=== PATIENT | female | born 1955 | race Caucasian/White ===

== ENCOUNTER 2023-06-21 14:08 | Outpatient (RCR) | payer OTHER, SELFPAY | END 2023-06-21 23:59 | disposition home or self-care (01) | LOC: RPT 14:08 | PROVIDERS: ATTENDING PHYSICIAN Urology; FAMILY PHYSICIAN Family Medicine | DX: M62.89 Other specified disorders of muscle (principal); N39.0 Urinary tract infection, site not specified; N95.2 Postmenopausal atrophic vaginitis; Z73.6 Limitation of activities due to disability | CPT/HCPCS: 97110; 97162; 97535 ==

== ENCOUNTER 2023-07-19 09:09 | Outpatient (RCR) | payer OTHER, SELFPAY | END 2023-07-19 23:59 | disposition home or self-care (01) | LOC: RPT 09:09 | PROVIDERS: ATTENDING PHYSICIAN Urology; FAMILY PHYSICIAN Family Medicine | DX: M62.89 Other specified disorders of muscle (principal); N39.0 Urinary tract infection, site not specified; N95.2 Postmenopausal atrophic vaginitis; Z73.6 Limitation of activities due to disability | CPT/HCPCS: 97110; 97112; 97530 ==

== ENCOUNTER 2023-08-16 09:53 | Outpatient (RCR) | payer OTHER, SELFPAY | END 2023-08-16 23:59 | disposition home or self-care (01) | LOC: RPT 09:53 | PROVIDERS: ATTENDING PHYSICIAN Urology; FAMILY PHYSICIAN Family Medicine | DX: M62.89 Other specified disorders of muscle (principal); N39.0 Urinary tract infection, site not specified; N95.2 Postmenopausal atrophic vaginitis; Z73.6 Limitation of activities due to disability | CPT/HCPCS: 97110; 97112 ==

== ENCOUNTER → 2023-08-20 08:16 | Outpatient (REF) | payer OTHER, SELFPAY | LOC: HWRAD 08:16 | PROVIDERS: ATTENDING PHYSICIAN Family Medicine | DX: R05.2 Subacute cough (principal) | CPT/HCPCS: 71046 ==

== ENCOUNTER 2023-08-23 10:15 | Outpatient (RCR) | payer OTHER, SELFPAY | END 2023-08-23 23:59 | disposition home or self-care (01) | LOC: RPT 10:15 | PROVIDERS: ATTENDING PHYSICIAN Urology; FAMILY PHYSICIAN Family Medicine | DX: M62.89 Other specified disorders of muscle (principal); N39.0 Urinary tract infection, site not specified; N95.2 Postmenopausal atrophic vaginitis; Z73.6 Limitation of activities due to disability | CPT/HCPCS: 97110; 97112 ==

== ENCOUNTER 2023-10-19 12:03 | Outpatient (RCR) | payer OTHER, SELFPAY | END 2023-10-19 23:59 | disposition home or self-care (01) | LOC: RPT 12:03 | PROVIDERS: ATTENDING PHYSICIAN Urology; FAMILY PHYSICIAN Family Medicine | DX: M62.89 Other specified disorders of muscle (principal); N39.0 Urinary tract infection, site not specified; N95.2 Postmenopausal atrophic vaginitis; Z73.6 Limitation of activities due to disability | CPT/HCPCS: 97110; 97112 ==

== ENCOUNTER → 2023-11-15 18:13 | Outpatient (REF) | payer OTHER, SELFPAY | LOC: RAD 18:13 | PROVIDERS: ATTENDING PHYSICIAN Family Medicine; FAMILY PHYSICIAN Internal Medicine Rheumatology | DX: M25.561 Pain in right knee (principal); G89.29 Other chronic pain; M25.562 Pain in left knee | CPT/HCPCS: 73560; 73565 ==

== ENCOUNTER 2023-11-18 14:09 | Outpatient (RCR) | payer OTHER, SELFPAY | END 2023-11-18 23:59 | disposition home or self-care (01) | LOC: RPT 14:09 | PROVIDERS: ATTENDING PHYSICIAN Urology; FAMILY PHYSICIAN Family Medicine | DX: M62.89 Other specified disorders of muscle (principal); N39.0 Urinary tract infection, site not specified; N95.2 Postmenopausal atrophic vaginitis; Z73.6 Limitation of activities due to disability | CPT/HCPCS: 97110; 97112 ==

== ENCOUNTER → 2023-11-23 07:22 | Outpatient (REF) | payer OTHER, SELFPAY | LOC: DHCBC/DCA 07:22 | PROVIDERS: ATTENDING PHYSICIAN Internal Medicine Cardiovascular Disease; FAMILY PHYSICIAN Family Medicine | DX: R06.09 Other forms of dyspnea (principal); R07.89 Other chest pain | CPT/HCPCS: 78452; 93017; A9500 ==

== ENCOUNTER 2023-12-21 11:57 | Outpatient (RCR) | payer OTHER, SELFPAY | END 2023-12-21 23:59 | disposition home or self-care (01) | LOC: RPT 11:57 | PROVIDERS: ATTENDING PHYSICIAN Urology; FAMILY PHYSICIAN Family Medicine | DX: M62.89 Other specified disorders of muscle (principal); N39.0 Urinary tract infection, site not specified; N95.2 Postmenopausal atrophic vaginitis; Z73.6 Limitation of activities due to disability | CPT/HCPCS: 97110; 97112; 97530 ==

== ENCOUNTER → 2023-12-21 15:09 | Outpatient (REF) | payer OTHER, SELFPAY | LOC: HWRCS 15:09 | PROVIDERS: ATTENDING PHYSICIAN Internal Medicine Cardiovascular Disease; FAMILY PHYSICIAN Family Medicine | DX: R06.09 Other forms of dyspnea (principal); R07.89 Other chest pain; I10 Essential (primary) hypertension | CPT/HCPCS: 93306 ==

== ENCOUNTER 2024-01-18 12:04 | Outpatient (RCR) | payer OTHER, SELFPAY | END 2024-01-18 23:59 | disposition home or self-care (01) | LOC: RPT 12:04 | PROVIDERS: ATTENDING PHYSICIAN Urology; FAMILY PHYSICIAN Family Medicine | DX: M62.89 Other specified disorders of muscle (principal); N39.0 Urinary tract infection, site not specified; N95.2 Postmenopausal atrophic vaginitis; Z73.6 Limitation of activities due to disability | CPT/HCPCS: 97110; 97112 ==

== ENCOUNTER 2024-03-21 11:57 | Outpatient (RCR) | payer OTHER, SELFPAY | END 2024-03-21 23:59 | disposition home or self-care (01) | LOC: RPT 11:57 | PROVIDERS: ATTENDING PHYSICIAN Urology; FAMILY PHYSICIAN Family Medicine | DX: M62.89 Other specified disorders of muscle (principal); N39.0 Urinary tract infection, site not specified; N95.2 Postmenopausal atrophic vaginitis; Z73.6 Limitation of activities due to disability | CPT/HCPCS: 97110; 97112; 97530 ==

== ENCOUNTER → 2024-04-25 06:18 | Day surgery (SDC) | payer OTHER, SELFPAY | LOC: GI 06:18 | PROVIDERS: ATTENDING PHYSICIAN Specialist | DX: Z12.11 Encounter for screening for malignant neoplasm of colon (principal); Z86.0101 Personal history of adenomatous and serrated colon polyps; K57.30 Diverticulosis of large intestine without perforation or abscess without bleeding; D12.3 Benign neoplasm of transverse colon; K62.1 Rectal polyp; K51.40 Inflammatory polyps of colon without complications | CPT/HCPCS: 45385; 45380; 88305 ==

== ENCOUNTER 2025-03-03 00:35 | Emergency (ER) | payer OTHER, SELFPAY ==
[2025-03-03 00:38] VITALS: BP 117/82
--- NOTE | 2025-03-03 01:36 | ED.GENMED ---
ED Provider Triage
<Eric Hodge MD, Resident - Last Filed: 03/03/25 04:08>
-
Patient seen by provider in Triage?: Seen in Triage
History of Present Illness
<Eric Hodge MD, Resident - Last Filed: 03/03/25 04:08>
General
Chief Complaint: Abdominal Symptoms
Source: patient
Exam Limitations: none
Time Seen by Provider: 03/03/25 01:29
History of Present Illness
History of Present Illness:
69-year-old female who presents today with upper respiratory tract infection symptoms (rhinorrhea, nasal congestion, mild sore throat) for the past 5 days (Wednesday night) which have been progressively improving, however today she had 5 episodes of
nausea associated with watery diarrhea, and new onset of GERD like sensation in her chest. No vomiting, abdominal pain, abdominal distention, cough, fever, chills, ear pain/fullness, dysuria, urinary frequency. No previous history of GERD.
Past History
<Eric Hodge MD, Resident - Last Filed: 03/03/25 04:08>
Past History
ED Past Medical History: Asthma, HTN, Hypercholesterolemia, Psychiatric (Depression, Anxiety) and Other (Meningioma, Diverticulitis, UTI, Sleep apnea uses CPAP)
ED Past Surgical History: Gynecological (D & C), Orthopedic (Ethan carpal tunnel) and Tonsilectomy
Social History
Tobacco: Former smoker
Alcohol: Occasional
Drug: None
Personal:
Living: with family
Employment: Employed
Family History
Family History: Other (Noncontributory); Negative Sudden
Review of Systems
<Eric Hodge MD, Resident - Last Filed: 03/03/25 04:08>
Review of Systems
All Other Systems: ROS reviewed and negative except as documented in HPI and ROS
Phy Exam
<Eric Hodge MD, Resident - Last Filed: 03/03/25 04:08>
General Physical Exam
General Presentation: well appearing and no apparent distress
General Habitus: normal
General Mental: alert
ENT Exam
ENT Exam: other (Mild clear nasal discharge seen bilaterally)
Cardiovascular Exam
Cardiovascular Exam: regular rate/rhythm and no edema
Pulmonary Exam
Pulmonary Exam: lungs clear and no respiratory distress
Gastrointestinal Exam
Gastrointestinal Exam: normal bowel sounds, non tender, soft, non distended and other (erythema of injection site on right hypogastric area)
Neurological Exam
Neurological Exam: alert and oriented x3
Skin Exam
Skin Exam: normal color, warm/dry and no rash
Course
<Eric Hodge MD, Resident - Last Filed: 03/03/25 04:08>
Orders/Labs/Results
Orders:
Orders
03/03/25 01:57
EKG [Electrocardiogram (*1)] Urgent
Reason for Study: Chest Pain
EKG- Treatment ONCE
03/03/25 02:13
CBC/With Diff [Complete Blood Count/With Diff] Urgent
CMP [Comprehensive Metabolic Panel] Urgent
Troponin I Urgent
03/03/25 03:34
Hydrocortisone [Hydrocortisone 2.5% Cream] See Dose Instructions TOPICAL NOW STA
Abnormal Lab Results
03/03/25
02:13
Absolute Monos (auto) 0.7 H 10^3/uL
(0.1-0.6)
03/03/25 02:13
03/03/25 02:13
Vital Signs
Initial and Last Documented VS:
Initial Vital Signs
Temp Pulse Resp BP Pulse Ox
98.4 F 78 16 117/82 100
03/03/25 00:38 03/03/25 00:38 03/03/25 00:38 03/03/25 00:38 03/03/25 00:38
Last Documented Vital Signs
Temp Pulse Resp BP Pulse Ox
98.6 F 71 19 149/76 96
03/03/25 02:00 03/03/25 03:00 03/03/25 03:00 03/03/25 03:00 03/03/25 03:00
<Hallie Daly DO - Last Filed: 03/03/25 04:12>
Orders/Labs/Results
Orders:
Orders
03/03/25 01:57
EKG [Electrocardiogram (*1)] Urgent
Reason for Study: Chest Pain
EKG- Treatment ONCE
03/03/25 02:13
CBC/With Diff [Complete Blood Count/With Diff] Urgent
CMP [Comprehensive Metabolic Panel] Urgent
Troponin I Urgent
03/03/25 03:34
Hydrocortisone [Hydrocortisone 2.5% Cream] See Dose Instructions TOPICAL NOW STA
Abnormal Lab Results
03/03/25
02:13
Absolute Monos (auto) 0.7 H 10^3/uL
(0.1-0.6)
03/03/25 02:13
03/03/25 02:13
Vital Signs
Initial and Last Documented VS:
Initial Vital Signs
Temp Pulse Resp BP Pulse Ox
98.4 F 78 16 117/82 100
03/03/25 00:38 03/03/25 00:38 03/03/25 00:38 03/03/25 00:38 03/03/25 00:38
Last Documented Vital Signs
Temp Pulse Resp BP Pulse Ox
98.6 F 71 19 149/76 96
03/03/25 02:00 03/03/25 03:00 03/03/25 03:00 03/03/25 03:00 03/03/25 03:00
<Eric Hodge MD, Resident - Last Filed: 03/03/25 04:08>
MDM/Problems Addressed
Differential Diagnosis Includes:
Viral gastroenteritis, drug induced diarrhea, irritable bowel syndrome, viral upper respiratory infection
MDM/Problems Addressed:
- EKG normal
- CBC unremarkable
- CMP unremarkable
- Troponin normal
- stool studies pending
Will discharge patient home with hydrocortisone cream to apply on injection site allergic reaction. F/u with PCP within 5 days.
<Eric Hodge MD, Resident - Last Filed: 03/03/25 04:08>
*Pulse Oximetry
SaO2: 100
Oxygen Mode of Delivery: Room air
Patient hypoxic: no
*Critical Care Note
Total Time (30-74mins, 75-104mins- exclusive of procedures): Not Applicable
ED Attending Note
<Eric Hodge MD, Resident - Last Filed: 03/03/25 04:08>
-
Portions of this chart may have been created with voice recognition software.� Occasional wrong word or��sound alike� substitutions may have occurred due to the inherent limitations of voice recognition software.
<Hallie Daly DO - Last Filed: 03/03/25 04:12>
ED Attending Note
Patient seen and examined by attending physician: Yes
I performed a history and physical exam of patient and discussed management with resident, I reviewed resident's note and agree with documented findings and plan of care.: Yes
ED Attending Note:
69-year-old woman with history of hypertension, hyperlipidemia, obstructive sleep apnea. History of diverticulitis with last episode 2021, history of irritable bowel disease with diarrhea.
She presents with 5-day history of URI symptoms, nasal congestion, clear rhinorrhea, low-grade fever 1 to 2 days ago which has since resolved. No coughing or shortness of breath. Symptoms have been improving.
Since yesterday however she developed diarrhea passing 5 loose nonbloody stools. Tonight after lying down to bed she developed nausea and heartburn. She has had no vomiting. No fever. She denies abdominal pain.
She is maintained on Zepbound for the past 4 months, dose was increased 2 weeks ago from 10 mg to 12.5 mg weekly. After her second injection 2 to 3 days ago she noticed an itchy red rash at the injection site right mid abdomen. She has never
experienced itchy rash previously.
No recent travel nor recent antibiotic use.
She presents to the ED with concern for heartburn and nausea. Concern for cardiac in nature. She has had no associated shortness of breath, no palpitations, no dizziness or lightheadedness, no neck nor back pain. No history of similar episodes in
the past. She admits that current symptoms are quite different from previous episode of diverticulitis which she presented with left lower quadrant abdominal pain.
Prior records reviewed.
Patient underwent colonoscopy April 2024. 1 polyp removed. Multiple colon biopsies unremarkable.
69-year-old woman appears her stated age, bright and alert, pleasant, appears in no acute distress. Afebrile. Noted to have very mild, nasal, stuffy voice.
HEENT: Mildly boggy turbinates with scant clear rhinorrhea. Posterior pharynx with scant clear postnasal drip, no injection nor exudate. Oral mucosa is moist. TMs are clear bilaterally.
Neck is supple, nontender, no adenopathy, no JVD, no meningismus.
Heart is regular rate and rhythm. No murmur no rub.
Lungs are clear to auscultation. Respirations are easy and nonlabored.
Abdomen is rotund, soft, nontender. No palpable masses. Normoactive bowel sounds.
Skin: There is a well-circumscribed erythematous patch right mid abdomen. No palpable heat nor palpable tenderness.
Extremities without clubbing or cyanosis or edema. Peripheral pulses are full and equal.
Concern for acute viral URI, acute gastroenteritis, ACS, GERD. Concern for adverse reaction to increased dose of Zepbound.
Patient noted to have erythematous itchy patch right mid abdomen. Concern for local contact dermatitis.
She has had no diarrhea since arrival to the ED and abdomen is soft without appreciable tenderness. Nothing to suggest small bowel obstruction nor diverticulitis nor significant colitis.
URI symptoms have been improving over the past day or 2. She is afebrile and reports recent low-grade fever has resolved. She has not had a cough nor shortness of breath and lungs are clear to auscultation.
At this point no indication for imaging.
Will check EKG as well as troponin. Routine labs are also pending.
If diarrhea recurs will check stool cultures.
Will apply hydrocortisone cream to focal abdominal wall itchy rash.
Discharge Plan
Departure
Patient Disposition: Home (Routine Discharge)
Date of Disposition: 03/03/25
Time of Disposition: 03:54
Patient with high blood pressure during this ER visit?: Yes
Condition: Fair
Discharge Problem:
Viral gastroenteritis, Nonspecific chest pain, Contact dermatitis
Instructions: Viral gastroenteritis in adults, BLOOD PRESSURE
Prescriptions:
New
hydrocortisone 2.5 % cream
1 applic topical BID PRN (Reason: allergic reaction) Qty: 20 0RF
No Action
duloxetine 30 MG capsule,delayed release(DR/EC)
60 mg PO HS
albuterol sulfate 1 PUFF HFA aerosol inhaler
2 puff inhalation R Q4HPRN PRN (Reason: sob/wheezing)
valsartan 40 mg Tablet
PO DAILY
Patient Comments:
unknown exact dose
rosuvastatin 5 mg Tablet
PO DAILY
Patient Comments:
unknown exact dose
Referrals:
Loretta Jean DO [Family Provider, Family Practice] - Follow up in 5-7 days
Activity Restrictions/Additional Instructions:
Apply hydrocortisone cream as instructed to injection site. CBC and CMP unremarkable. EKG unremarkable. Stool studies still pending. Follow up with PCP within 5 days.
Thank you for visiting the Emergency Department at [facility].
1. Please schedule a follow up appointment as directed. Call first thing tomorrow morning to make an appointment.
2. If indicated, please take your medications as instructed and indicated on discharge paperwork.
3. If any of your symptoms do not improve, or persist, or become more severe within 6-12 hours, please return to the emergency department for further care.
4. Please return to the emergency department if you develop a headache, neck pain/stiffness, fever greater than 100.4F, chest pain, shortness of breath, persistent nausea, vomiting, slurred speech, difficulty walking, numbness/tingling, weakness,
signs of infection or any other symptoms that are worrisome to you.
Please call [phone] if you have any questions.
Interventions
Interventions:
*Risk Screen - Suicide Last Done: 03/03/25 00:38
*General Assessment Last Done: 03/03/25 01:56
*Neglect/Abuse Screening Last Done: 03/03/25 00:38
*ED- Fall Risk Assessment Last Done: 03/03/25 00:38
*ED COVID-19 Vaccine History Last Done: 03/03/25 00:38
*ED Influenza Vaccine History Last Done: 03/03/25 00:38
[id number] Assessment Last Done: 03/03/25 02:15
Discharge Date and Time
Print Language: INDONESIAN
[2025-03-03 01:56] VITALS: BMI 37.7
[2025-03-03 02:00] VITALS: BP 156/73
[2025-03-03 03:00] VITALS: BP 149/76
[2025-03-03 03:01] LABS: Hematocrit 40.4 % (37.0-47.0); Hemoglobin 13.4 g/dL (12.0-16.0); Mean Corp Hgb Conc. 33.2 g/dL (33.0-37.0); Mean Corpuscular Volume 87.4 fL (81.0-99.0); Nucleated Red Blood Cells % 0 %; Platelet Count 246 10^3/uL (130-400); Red Cell Dist. Width 13.4 % (11.5-14.5)
[2025-03-03 03:23] LABS: ALT (SGPT) 23 U/L (0-35); AST (SGOT) 27 U/L (14-36); Albumin 4.4 g/dl (3.5-5.0); Alkaline Phosphatase 95 U/L (38-126); Blood Urea Nitrogen 10 mg/dl (7-17); Calcium 9.6 mg/dl (8.4-10.2); Carbon Dioxide 29 mmol/L (22-30); Chloride 107 mmol/L (98-107); Estimated Creatinine Clearance 80 ml/min; Glucose 81 mg/dl (70-99); Potassium 3.9 mmol/L (3.5-5.1); Sodium 142 mmol/L (135-145); Total Protein 7.1 g/dl (6.3-8.2); eGFR > 60.00
--- NOTE | 2025-03-03 03:33 | EDRN ---
Called pharmacy for hydrocortisone cream
[2025-03-03 03:34] LABS: Troponin I < 0.012 ng/ml
[2025-03-03] MEDS: HYDROCORTISONE 2.5% CREAM 1 APPLIC TOPICAL (04:11)
[2025-03-03 04:13] VITALS: BP 149/75
== END 2025-03-03 04:28 | disposition home or self-care (01) ==
LOC: EMR 00:35
PROVIDERS: EMERGENCY PHYSICIAN Emergency Medicine; FAMILY PHYSICIAN Family Medicine
DX: A08.4 Viral intestinal infection, unspecified (principal); R07.9 Chest pain, unspecified; L23.3 Allergic contact dermatitis due to drugs in contact with skin; T50.5X5A Adverse effect of appetite depressants, initial encounter; I10 Essential (primary) hypertension; E78.00 Pure hypercholesterolemia, unspecified; J45.909 Unspecified asthma, uncomplicated; G47.33 Obstructive sleep apnea (adult) (pediatric); F41.9 Anxiety disorder, unspecified; F32.A Depression, unspecified; K52.3 Indeterminate colitis; Z87.891 Personal history of nicotine dependence; Z86.011 Personal history of benign neoplasm of the brain
CPT/HCPCS: 99284; 80053; 84484; 85025; 93005